=== PATIENT | female | born 1985 | race African-American/Black ===

== ENCOUNTER 2017-04-04 16:11 | Day surgery (SDC) | payer OTHER ==
[2017-04-04 17:03] VITALS: BP 140/70; TEMP 98.4; BMI 41.3
[2017-04-04] MEDS ORDERED: Lactated Ringer's 1,000 ML IV SCH (17:30)
--- NOTE | 2017-04-04 17:59 | PRG ---
DATE OF SERVICE: 04/04/2017 TIME OF EVALUATION: 17:30, it is now 17:42 LOCATION: Labor and Delivery and triage A This is a patient of Dr. Medina. REASON FOR EVALUATION: Constipation and left back pain at 21 weeks and 3 days. HISTORY OF PRESENT ILLNESS: In brief, this is a 31-year-old -[place] female who is a gravid a 2, para 1 with a history of a prior in 2007 who presents with a 3-day history of inabili ty to pass stool and left lower quadrant pain. She denies fevers, vaginal bleeding, contractions, h eadaches, sick contacts, or abdominal trauma. She states that the discomfort began yesterday evenin g and has progressed throughout the day. There is also no evidence of vaginal discharge or bleeding . REVIEW OF SYSTEMS: A complete review of systems was checked and is otherwise negative unless specif ied in the HPI. ALLERGIES: CODEINE. PAST SURGICAL HISTORY: 1. in 2007. 2. She has had a gynecological D\T\C for heavy bleeding. PAST MEDICAL HISTORY: Significant for an umbilical hernia that has not been repaired. She does not have a history of chronic hypertension, although her blood pressure in Labor and Delivery was 140/8 0. This may be due to her discomfort. PHYSICAL EXAMINATION: VITAL SIGNS: Her pulse is 86, respirations are 18, temperature is 98.2, blood pressure is 140/80. Clinically, she looks uncomfortable, but is in no acute distress. It does not appear to be in labor . ABDOMEN: Obese, but soft and nontender. I performed a cervical vaginal exam and find no evidence o f rupture of membranes or vaginal bleeding. Her cervix is closed. There is no vaginal discharge. Doppler heart tones were checked and Doppler heart tones were in the 140s to 150s. Interventions or dered are cath urinalysis, CBC, CMP, IV fluids, and a Fleet enema due to her constipation. ASSESSMENT: This is a G2, P1 at 21 weeks and 3 days with a day history of constipation and lower ba ck pain. I suspect that her discomfort is related to the constipation. She states that constipatio n was severe enough with her last that she required several enemas to clear the problem. There is no evidence of labor at this time. There is no evidence of preeclampsia at this ti me. PLAN: 1. Labs as ordered. 2. Sleep enema to see if this get her relief. 3. IV fluids for symptomatic hydration relief. 4. We will follow up for now.
[2017-04-04 18:02] LABS: #Eosinphils 0.1 thou/uL (0.0-0.7); #Lymphocytes 2.2 thou/uL (1.20-3.40); #Monocytes 0.6 thou/uL (0.11-0.59); #Neutrophils 4.1 thou/uL (1.40-6.50); %Basophils 0.6 % (0.0-1.0); %Eosinophils 1.4 % (0.0-10.0); %Monocytes 7.9 % (0.0-10.0); Hematocrit 39.5 % (36.0-47.0); Red Blood Cell (RBC) Count 4.37 mill/uL (4.20-5.40)
[2017-04-04 18:25] LABS: ALT (SGPT) 11 U/L (8-55); AST (SGOT) 14 U/L (5-34); Alkaline Phosphatase 65 U/L (40-150); Anion Gap 13 mmol/L (10-20); BUN (Urea Nitrogen) 6 mg/dL (7.0-18.7); Bilirubin, Total 0.3 mg/dL (0.2-1.2); Calc. Creatinine Clearance 236 mL/min (70-130); Calcium 9.6 mg/dL (7.8-10.44); Carbon Dioxide 20 mmol/L (22-29); Chloride 106 mmol/L (98-107); Estimated GFR-MDRD Greater than 90; Globulin 4.3 g/dL (2.4-3.5); Protein, Total 7.9 g/dL (6.0-8.3)
[2017-04-04] MEDS ORDERED: Mineral Oil ENEMA PR SCH (18:30)
[2017-04-04 19:03] LABS: Bilirubin Negative (Negative); Blood, Urine Negative (Negative); Glucose, Urine (Dipstick) Negative (Negative); Ketone, Urine 40 mg/dL (Negative); Nitrite Negative (Negative); Protein, Urine (Dipstick) Negative (Neg-Trace)
[2017-04-04] MEDS ORDERED: Mineral Oil ENEMA PR PRN (19:30)
--- NOTE | 2017-04-04 20:47 | PRG ---
DATE OF SERVICE: 04/04/2017 TIME: 2031 hours. FOLLOWUP TRIAGE EVALUATION In brief, this is a patient of Dr. Medina that we have been evaluating for suspected constipation di debbie. The patient's CBC, complete metabolic profile, and urinalysis has returned all normal. S he has had 2 Fleet enemas and has finally had resolved. As there is no evidence of labor, f ebrile illness, or otherwise maternal or compromise, we can follow up her constipation as an o utpatient, now that she has had some relief. She was instructed to take some stool softeners and to follow up with her provider, Dr. Medina, this week.
== END 2017-04-04 20:45 | disposition home or self-care (01) ==
LOC: L&D/OP 16:11
PROVIDERS: ATTEND Obstetrics & Gynecology
DX: O99.89 Other specified diseases and conditions complicating pregnancy, childbirth and the puerperium (principal); K59.00 Constipation, unspecified; M54.9 Dorsalgia, unspecified; O99.612 Diseases of the digestive system complicating pregnancy, second trimester; K42.9 Umbilical hernia without obstruction or gangrene; Z3A.21 21 weeks gestation of pregnancy; Z79.899 Other long term (current) drug therapy; Z88.5 Allergy status to narcotic agent; Z98.890 Other specified postprocedural states
CPT/HCPCS: 80053; 81003; 85025; 96360; 96361

== ENCOUNTER 2017-04-10 18:29 | Emergency (ER) | payer OTHER ==
[2017-04-10] MEDS ORDERED: Acetaminophen 500 MG TAB ONE (18:49)
[2017-04-10] MEDS ORDERED: Oxymetazoline HCl 0.05% ( 15 ML ) ONE (19:17)
[2017-04-10] MEDS ORDERED: Metoclopramide HCl 10 MG/2 ML VIAL ONE (19:34)
[2017-04-10] MEDS ORDERED: diphenhydrAMINE 50 MG/ML VIAL ONE (19:34)
[2017-04-10 19:43] LABS: Bilirubin Negative (Negative); Blood, Urine Negative (Negative); Glucose, Urine (Dipstick) Negative (Negative); Ketone, Urine 15 mg/dL (Negative); Nitrite Negative (Negative); Protein, Urine (Dipstick) Negative (Neg-Trace)
== END 2017-04-10 21:05 | disposition home or self-care (01) ==
LOC: ERS 18:29
DX: O99.512 Diseases of the respiratory system complicating pregnancy, second trimester (principal); J11.1 Influenza due to unidentified influenza virus with other respiratory manifestations; Z3A.22 22 weeks gestation of pregnancy
CPT/HCPCS: 81003; 87081; 87430; 96361; 96365; 96375; J1200; J2765

== ENCOUNTER 2017-05-11 08:22 | Day surgery (SDC) | payer OTHER ==
[2017-05-11 09:25] VITALS: BMI 40.6
[2017-05-11 09:34] VITALS: BP 154/68; TEMP 98.9
--- NOTE | 2017-05-11 10:16 | PDOC.LDHP ---
Labor and Delivery H&P Chief complaint: decreased movement HPI: Arleth is a 31 yo at 26.5w by LMP/reported 6w sono who presents for concern of decreased movement since 4 pm yesterday. She said yesterday she was slightly overexerting herself and had picked up a window AC unit. After that, she did not feel the baby move in the evening but after drinking some cold water around 2 am she felt him move for a bit. She still did not feel like he was moving as much as usual this morning so after dropping her daughter off at school she decided to come in. She denies any LOF, VB, ctx. She denies any vaginal discharge, dysuria, hematuria or any other concerns. She also has not eaten anything since yesterday afternoon. Current gestational age (weeks): 26 (26.5w by LMP/reported 6w sono) Due date: 08/12/17 Dating criteria: last menstrual period, first trimester ultrasound Grav: 2 Para: 1 OB History Details: Denies any complications this or last apart from obesity. Current complications: none Abnormal US findings: No Past Medical History: None Current medications: pre-matilde vitamins Previous surgical history: low tranverse CS, dilation and curettage Social history: other - Physical Exam Vital signs reviewed and normal: yes General: NAD Heart: RRR Lungs: CTAB Abdomen: gravid Extremeties: no edema FHT: category 1 (cannot categorize because not having contractions but baseline is 150/mod arthur/occasional accel/no decel) Searcy contractions every: None - OB Labs Blood type: unknown RH: unknown Antibody Screen: unknown HIV: unknown RPR: unknown HEPSAg: unknown 1 hour GCT: unknown 3 hour GTT: unknown GBS: unknown Urine drug screen: not done - Assessment 31 yo at 26.5w by LMP/reported 6w sono here for concern of decreased movement - Plan -: 1. Decreased movement - movement has picked up and she is now feeling baby move "almost" as much as normal - FHT reassuring - Discussed kick counts and importance of eating regular meals - Feeling much better now that she has had sandwich 2. sIUP - Next appointment is 05/18 for OGTT - Appt with Dr. Medina 06/01/17 - Continue routine follow-up - No noted complications this or last apart from obesity 3. H/o primary C/S for failed induction - Considering TOLAC 4. Obesity - Counseled appropriate weight gain in - OGTT next week Assessment and plan discussed with Dr. Mcgraw who is in agreement. Will discharge home with instructions noted above. <Jen Perdomo - Last Filed: 05/11/17 10:24> <Michelle Mcgraw - Last Filed: 05/11/17 13:39> Allergies/Adverse Reactions: Allergies Allergy/AdvReac Type Severity Reaction Status Date / Time codeine Allergy Verified 05/11/17 11:43 Attending Addendum - Attending Addendum I personally evaluated the patient and discussed the management with Dr. Perdomo. I agree with the History, Examination, Assessment and Plan documented above. <Michelle Mcgraw - Last Filed: 05/11/17 13:39>
== END 2017-05-11 10:25 | disposition home or self-care (01) ==
LOC: L&D/OP 08:22
PROVIDERS: ATTEND Obstetrics & Gynecology
DX: O36.8120 Decreased fetal movements, second trimester, not applicable or unspecified (principal); Z3A.26 26 weeks gestation of pregnancy; Z79.899 Other long term (current) drug therapy; Z88.5 Allergy status to narcotic agent; Z98.890 Other specified postprocedural states

== ENCOUNTER 2017-05-22 07:31 | Inpatient (IN) | payer OTHER ==
[2017-08-02] MEDS ORDERED: Promethazine HCl 25 MG/ML VIAL IM PRN ×4 (10:06→19:50)
[2017-08-02] MEDS ORDERED: Lactated Ringer's 1,000 ML IV SCH ×3 (10:06→14:49)
[2017-08-02] MEDS ORDERED: Bicitra 30 ML UDCUP PO SCH (10:06)
[2017-08-02] MEDS ORDERED: CEFAZOLIN/Water 2 GM/20 ML SYRINGE SLOW IVP SCH (10:06)
[2017-08-02] MEDS ORDERED: Ondansetron HCl/PF 4 MG/2 ML Vial IVP PRN ×5 (10:06→19:50)
[2017-08-02 10:27] VITALS: BMI 42.7
[2017-08-02 10:59] LABS: Hemoglobin 11.9 g/dL (12.0-16.0); Mean Corpuscular HGB CONC 33.1 g/dL (32.0-36.0); Mean Corpuscular Hemoglobin 29.3 pg (27.0-31.0); Mean Corpuscular Volume 88.6 fl (81.0-99.0); Mean Platelet Volume 7.3 fL (7.4-10.4); Platelet Count 240 thou/uL (130-400); RBC Distribution Width 13.3 % (11.5-14.5); Red Blood Cell (RBC) Count 4.06 mill/uL (4.20-5.40); White Blood Cell (WBC) Count 8.8 thou/uL (4.8-10.8)
[2017-08-02 11:39] LABS: HBSAg Index 0.15 S/CO (0-0.99); Hep B Surf Ag Non-Reactive S/CO (NonReactive)
[2017-08-02 11:41] LABS: Syphilis Antibody Nonreactive (Nonreactive); Syphilis Antibody Index 0.06 S/CO (<1.00 Non-Reactive)
[2017-08-02] MEDS ORDERED: Fentanyl 100 MCG/2 ML VIAL ONE (12:27)
[2017-08-02] MEDS ORDERED: Oxytocin 10 UNITS/ML VIAL ONE (12:27)
[2017-08-02] MEDS ORDERED: Morphine PF 1 MG/ML SYR ONE (12:27)
[2017-08-02] MEDS ORDERED: Meperidine HCl/PF 25 MG/ML VIAL SLOW IVP PRN (13:15)
[2017-08-02] MEDS ORDERED: Ketorolac Tromethamine 30 MG/ML VIAL IVP SCH (13:15)
[2017-08-02] MEDS ORDERED: HYDROmorphone 2 MG/ML VIAL SLOW IVP PRN (13:15)
[2017-08-02] MEDS ORDERED: Promethazine HCl 25 MG SUPP PR PRN ×2 (13:15→19:50)
[2017-08-02] MEDS ORDERED: Naloxone HCl 0.4 mg/ml Vial IVP PRN ×4 (13:15→19:50)
[2017-08-02] MEDS ORDERED: Communication Order-Pharmacy FS SCH ×2 (13:15→20:00)
[2017-08-02] MEDS ORDERED: diphenhydrAMINE 50 MG/ML VIAL IVP PRN ×2 (13:15→19:50)
[2017-08-02] MEDS ORDERED: Naloxone HCl 0.4 mg/ml Vial IV PRN ×2 (13:15→19:50)
[2017-08-02] MEDS ORDERED: Eucerin (Mineral Oil/Petrolatum,White) 30 gm Jar TOP PRN ×2 (13:15→19:50)
[2017-08-02] MEDS ORDERED: Ketorolac Tromethamine 30 MG/ML VIAL IVP PRN ×2 (13:15→19:50)
[2017-08-02] MEDS ORDERED: Adacel (T-DAP) 0.5 ML VIAL IM ONE (14:49)
[2017-08-02] MEDS ORDERED: HYDROcodone/Acetaminophen 5/325 mg Tablet PO PRN (14:49)
[2017-08-02] MEDS ORDERED: Zolpidem Tartrate 5 MG TAB PO PRN (14:49)
[2017-08-02] MEDS ORDERED: LR w/ Pitocin 40 units/1000 ML BAG IV SCH (14:49)
[2017-08-02] MEDS ORDERED: Measles/Mumps/Rubella 10 MCG/0.5 ML VIAL SC ONE (14:49)
[2017-08-02] MEDS ORDERED: Lanolin Ointment 7 GM TUBE TOP PRN (14:49)
[2017-08-02] MEDS ORDERED: Varicella virus, LIVE 0.5 ML VIAL SC ONE (14:49)
[2017-08-02] MEDS ORDERED: LR / Pitocin 40 units/1000 ml 1,000 ML IV SCH (15:15)
[2017-08-02] MEDS: Morphine 5 MG/ML SYRINGE SLOW IVP PRN ×3 (16:12→17:40)
[2017-08-02] MEDS: Ibuprofen 800 MG TAB PO SCH ×2 (16:16→22:46)
[2017-08-02] MEDS ORDERED: Ondansetron HCl/PF 4 MG/2 ML Vial ONE (17:16)
[2017-08-02] MEDS ORDERED: PHENYLEPHRINE-NS 100 MCG/ML 10 ML SYRINGE ONE (17:16)
[2017-08-02] MEDS ORDERED: Ketorolac Tromethamine 30 MG/ML VIAL ONE (17:16)
--- NOTE | 2017-08-02 20:06 | OP ---
DATE OF PROCEDURE: 08/02/2017 PREOPERATIVE DIAGNOSES: 1. A 38 weeks gestation. 2. Prior section x1. 3. Unfavorable cervix. POSTOPERATIVE DIAGNOSES: 1. A 38 weeks gestation. 2. Prior section x1. 3. Unfavorable cervix. PROCEDURE PERFORMED: Repeat low transverse section without extension. SURGEON: Kain Medina M.D. SPECIAL EDUCATION TUTOR: Laurie Devi D.O. ANESTHESIA: Bruce Savage M.D., subarachnoid block. ESTIMATED BLOOD LOSS: 750 mL. COMPLICATIONS: None. DRAINS: Castellano to gravity. MEDICATIONS: Three grams Ancef preincision. DEEP VENOUS THROMBOSIS PROPHYLAXIS: SCDs. OPERATIVE FINDINGS: 1. Male infant, cephalic presentation and clear fluid, 4 and 9 Apgars, 8 pounds 2 ounces, nu rsery. 2. Normal appearing uterus, tubes, and ovaries bilaterally. 3. Intact placenta with no obvious abnormalities. 4. Clear urine and correct counts at the end of the procedure. DISPOSITION: To the recovery room in good condition. DESCRIPTION OF OPERATIVE PROCEDURE: After obtaining proper informed consent, the patient was taken t o the operating room where subarachnoid block was achieved without difficulty. The patient was prepp ed and draped in the usual manner for section. FHTs were 142, previous Pfannenstiel incisio n identified, incised sharply, carried down the fascia and the midline was incised sharply superiorly and laterally with curved Li scissors. Rectus dissected off sharply superiorly and inferiorly, di vided in midline, peritoneum entered bluntly, taking care to avoid trauma to underlying viscera. Elly xis O retractor placed inside. Low-transverse hysterotomy made just above the level of the vesicoute rine peritoneal fold. Clear fluid encountered. 's head elevated through the hysterotomy. The rest of the infant delivered. Cord clamped and cut and handed off to team in attendance. Usual cord blood samples obtained. Placenta removed manually and noted to be intact. Uterus left in side the abdominal cavity. Hysterotomy noted to be without extension, closed using a running locking #1 Monocryl suture. Gutters were irrigated out bilaterally and noted to be dry. Reinspection of th e hysterotomy revealed it to be dry. Lane 0 retractor was removed. The rectus inspected and noted to be dry. Fascia reapproximated using running continuous 0 PDS suture x2. Subcutaneous tissue irr igated and hemostatic with Bovie cautery, reapproximated using a 2-0 plain gut. Skin reapproximated using subcuticular 4-0 Monocryl and Dermabond. The patient was taken to recovery room in good condit ion.
[2017-08-02] MEDS: Docusate Calcium (SURFAK) 240 MG CAP PO SCH (22:46)
[2017-08-02] MEDS: diphenhydrAMINE 25 MG CAP PO PRN (23:53)
[2017-08-03] MEDS ORDERED: Meperidine HCl/PF 25 MG/ML VIAL IM PRN (01:15)
[2017-08-03] MEDS ORDERED: HYDROcodone/Acetaminophen 5/325 mg Tablet PO PRN ×3 (01:15→08:00)
[2017-08-03 05:27] LABS: Hemoglobin 10.4 g/dL (12.0-16.0); Mean Corpuscular HGB CONC 32.5 g/dL (32.0-36.0); Mean Corpuscular Hemoglobin 28.9 pg (27.0-31.0); Mean Corpuscular Volume 88.9 fl (81.0-99.0); Mean Platelet Volume 7.4 fL (7.4-10.4); Platelet Count 190 thou/uL (130-400); RBC Distribution Width 13.3 % (11.5-14.5); White Blood Cell (WBC) Count 8.8 thou/uL (4.8-10.8)
[2017-08-03] MEDS: Ibuprofen 800 MG TAB PO SCH ×3 (06:21→21:18)
[2017-08-03] MEDS: Docusate Calcium (SURFAK) 240 MG CAP PO SCH ×2 (09:05→21:18)
[2017-08-03] MEDS: Prenatal Vitamin 1 TAB PO SCH (09:05)
[2017-08-03] MEDS: HYDROcodone/Acetaminophen 5/325 mg Tablet PO PRN ×2 (09:06→17:07)
[2017-08-03] MEDS: diphenhydrAMINE 25 MG CAP PO PRN (12:23)
[2017-08-03] MEDS: Simethicone Chewable 80 MG TAB PO PRN ×2 (13:56→21:19)
[2017-08-04] MEDS: HYDROcodone/Acetaminophen 5/325 mg Tablet PO PRN ×3 (04:21→19:28)
[2017-08-04] MEDS: Simethicone Chewable 80 MG TAB PO PRN ×2 (04:21→19:28)
[2017-08-04] MEDS: Ibuprofen 800 MG TAB PO SCH ×3 (05:45→21:21)
[2017-08-04] MEDS: Prenatal Vitamin 1 TAB PO SCH (09:29)
[2017-08-04] MEDS: Docusate Calcium (SURFAK) 240 MG CAP PO SCH ×2 (09:29→21:22)
[2017-08-04 20:26] VITALS: TEMP 98.3
[2017-08-05] MEDS: Ibuprofen 800 MG TAB PO SCH (05:29)
--- NOTE | 2017-08-05 06:32 | PDOC.PP ---
Post Progress Note Post Day #: 3 Subjective: Doing well PO intake tolerated: yes Flatus: yes Ambulation: yes Vital Signs (12 hours) Temp Pulse Resp BP 08/05/17 00:04 77 127/62 08/04/17 19:28 98.3 F 86 20 141/72 H Weight Weight 298 lb - Physical Examination General: NAD Cardiovascular: no m/r/g Respiratory: clear to auscultation bilaterally Abdominal: appropriately TTP (sutured incision) Extremities: negative homans (B) Skin: CS incision dry & intact Neurological: no gross focal deficits Result Diagrams: 08/03/17 04:59 Additional Labs: Post Labs Blood Type O POSITIVE 08/02/17 10:49 Hep Bs Antigen Non-Reactive S/CO (NonReactive) 08/02/17 10:49 (1) Delivery with history of section Code(s): O34.219 - MATERNAL CARE FOR UNSP TYPE SCAR FROM PREVIOUS DEL Status: Acute (2) Hx of section Code(s): Z98.891 - HISTORY OF UTERINE SCAR FROM PREVIOUS SURGERY Status: Acute - Assessment/Plan OK for discharge. patient seen and examined. No evidence postop infection or ilius. Tylenol #[address] Medina. F/U in 2 weeks.
--- NOTE | 2017-08-05 06:33 | PDOC.EVN ---
Event Note - Event Note Event Note: DISCHARGE NOTE PROCEDURE: Repeat at term Patient s/p repeat CS with discharge home on POD3. Doing well at discharge. VSSFEB. Incision sutured. Please see note and discharge summary in record.
[2017-08-05 08:40] VITALS: BP 139/78
[2017-08-05] MEDS: Prenatal Vitamin 1 TAB PO SCH (10:04)
[2017-08-05] MEDS: Docusate Calcium (SURFAK) 240 MG CAP PO SCH (10:04)
== END 2017-08-05 11:30 | disposition home or self-care (01) | DRG 765 ==
LOC: EDSTATUS 11:05 → L&D 08-02 09:48 → 3SW 08-02 16:11
PROVIDERS: ADMIT Obstetrics & Gynecology; ATTEND Obstetrics & Gynecology
PROC: 10D00Z1 Extraction of Products of Conception, Low, Open Approach (ICD-10-PCS; principal; 2017-08-02)
DX: O34.211 Maternal care for low transverse scar from previous cesarean delivery (principal); Z68.41 Body mass index [BMI] 40.0-44.9, adult; E66.01 Morbid (severe) obesity due to excess calories; O13.4 Gestational [pregnancy-induced] hypertension without significant proteinuria, complicating childbirth; O99.214 Obesity complicating childbirth; Z3A.38 38 weeks gestation of pregnancy; Z37.0 Single live birth
CPT/HCPCS: 36415; 51702; 85027; 86780; 86850; 86900; 86901; 87340; J2270; J0131; J1200; J1885; J2274; J2405; J2550; J2590; J3010

== ENCOUNTER 2017-07-18 12:58 | Day surgery (SDC) | payer OTHER ==
--- NOTE | 2017-07-18 15:01 | HP ---
DATE OF SERVICE: 07/18/2017 PRIMARY LOG PREPARER: Dr. Kain Medina. CHIEF COMPLAINT: Abdominal pains. HISTORY OF PRESENT ILLNESS: The patient is a 31-year-old G2, P1 female with an intrauterine pregnanc y at 36 weeks who is presenting to Labor and Delivery with lower abdominal pain and pelvic pressure. She reports that she has been feeling this for the last day, more so, but has been getting progressi ve with this and is "tired of being ". The patient reports that the abdominal pain is present with the contractions, which she feels about every 15-20 minutes and last about 10-15 sec onds. She denies any pain in between the contractions. She also reports some pelvic pressure like t he baby wants to come out. The patient denies any vaginal bleeding, leakage of fluid, change in disc harge. She denies any urinary urgency or frequency. She denies any fever, fall, illness, headache, chest pain, shortness of breath, nausea, vomiting. She denies diarrhea, constipation. She denies an y new rashes. She denies hip problems or knee problems. Denies vaginal bleeding, leakage of fluid, urinary urgency. PAST MEDICAL HISTORY: Significant for abdominal ventral hernia. PAST SURGICAL HISTORY: Previous . SOCIAL HISTORY: Denies drug, alcohol or tobacco use. ALLERGIES: No known drug allergy. MEDICATIONS: vitamins. REVIEW OF SYSTEMS: Per HPI. OB LABORATORY DATA: Blood type is O positive, antibody screen is negative. She is rubella immune. Hepatitis B surface antigen is nonreactive. RPR is nonreactive. HIV is nonreactive, GC and chlamydi a are negative. PHYSICAL EXAMINATION: VITAL SIGNS: Blood pressure 141/63, heart rate of 96, respiratory rate of 20, temperature 98.9. GENERAL: She appears to be in no acute distress. She is alert and oriented, and cooperative and ple asant to interact with. HEAD: Normocephalic, atraumatic. LUNGS: Clear to auscultation bilaterally. HEART: Has a regular rate and rhythm. ABDOMEN: Soft. She does have a ventral hernia about 6 inches above her umbilicus. EXTREMITIES: Nontender, nonedematous. CERVICAL EXAM: Closed. At the time of the cervical exam, nurse reported that the patient seems to h ave a Bartholin's gland cyst, not painful to the patient. heart tracing performed for abdominal pain threatened labor. Baseline is in the 130s with mode rate long-term variability, positive accelerations, no decelerations. Baseline does not show any con tractions. ASSESSMENT AND PLAN: The patient is a 31-year-old female with an intrauterine at 36 weeks, having contractions and a closed cervix. She has an appointment tomorrow with her doctor, Renae Medina and recommended that she have him evaluate her this Bartholin's gland cyst. We deferred th is evaluation to him due to the proximity of this visit and the patient's lack of symptoms from it. I did counseled the patient that she does have increased chance of infection with this cyst and did r ecommended once again for her to let Dr. Medina know about it. The patient has been given la bor precautions.
== END 2017-07-18 14:00 | disposition home or self-care (01) ==
LOC: L&D/OP 12:58
PROVIDERS: ATTEND Obstetrics & Gynecology
DX: O47.03 False labor before 37 completed weeks of gestation, third trimester (principal); O34.83 Maternal care for other abnormalities of pelvic organs, third trimester; N75.0 Cyst of Bartholin's gland; Z88.5 Allergy status to narcotic agent; Z79.899 Other long term (current) drug therapy; Z3A.36 36 weeks gestation of pregnancy; Z98.891 History of uterine scar from previous surgery
CPT/HCPCS: 99282

== ENCOUNTER 2017-08-17 15:05 | Emergency (ER) | payer OTHER ==
[2017-08-17] MEDS ORDERED: Ibuprofen 800 MG TAB ONE (16:23)
--- NOTE | 2017-08-17 16:38 | RAD ---
RIGHT HIP 2 VIWES: HISTORY: Hip pain. FINDINGS: There are arthritic changes of the hip. There is joint space narrowing and some spur formation along the femoral head and neck junction and acetabulum. No fracture. IMPRESSION: Moderate arthritic changes of the hip. POS: [facility]
== END 2017-08-17 16:27 | disposition home or self-care (01) ==
LOC: ERS 15:05
DX: O99.89 Other specified diseases and conditions complicating pregnancy, childbirth and the puerperium (principal); M25.551 Pain in right hip

== ENCOUNTER 2017-10-03 21:03 | Emergency (ER) | payer OTHER ==
[~2017-10-03 21:03] MED LIST: ISOVUE-370 76%-LOCM 1 ML ONE
[2017-10-03] MEDS ORDERED: Ketorolac Tromethamine 30 MG/ML VIAL ONE (22:17)
[2017-10-03 22:22] LABS: #Eosinphils 0.1 thou/uL (0.0-0.7); #Lymphocytes 2.1 thou/uL (1.20-3.40); #Monocytes 0.7 thou/uL (0.11-0.59); #Neutrophils 4.2 thou/uL (1.40-6.50); %Basophils 0.1 % (0.0-1.0); %Eosinophils 1.3 % (0.0-10.0); %Lymphocytes 29.6 % (21.0-51.0); %Monocytes 9.5 % (0.0-10.0); %Neutrophils 59.4 % (42.0-75.0); Hemoglobin 11.4 g/dL (12.0-16.0); Mean Corpuscular HGB CONC 32.4 g/dL (32.0-36.0); Mean Corpuscular Hemoglobin 28.3 pg (27.0-31.0); Mean Corpuscular Volume 87.3 fl (81.0-99.0); Mean Platelet Volume 6.8 fL (7.4-10.4); Platelet Count 261 thou/uL (130-400); RBC Distribution Width 13.9 % (11.5-14.5); Red Blood Cell (RBC) Count 4.03 mill/uL (4.20-5.40); White Blood Cell (WBC) Count 7.1 thou/uL (4.8-10.8)
--- NOTE | 2017-10-03 22:36 | CT ---
POSTCONTRAST SOFT TISSUE NECK CT: 10/03/17 HISTORY: Left lower jaw pain and swelling x2 weeks. Pain worsening today. COMPARISON: None. TECHNIQUE: Postcontrast soft tissue neck CT is performed in the axial plane. Reformatted images are submitted fo r interpretation. FINDINGS: The visualized brain parenchyma is unremarkable. the visualized orbits are unremarkable. Adequate aer ation of the visualized sinuses and mastoid air cells. Aerodigestive tract is patent. No mucosal abnormality. The midline fatty raphae of the tongue is pres erved. Epiglottis has a normal caliber. Pre-epiglottic fat is preserved. Appropriate attenuation of the submandibular glands and parotid gland. Appropriate attenuation of the thyroid gland. Symmetric attenuation of the sternocleidomastoid muscles. Grossly, the great vessels of the neck are patent. Cervical spine vertebral body height is maintained. No fracture. No significant central canal stenosi s or foraminal narrowing. Evaluation is limited by technique. No prevertebral soft tissue swelling or epidural hematoma. Upper mediastinum and lung apices are unremarkable. There are enlarged bilateral soft tissue neck lymph nodes. Enlarged right level II lymph nodes measur es 0.6 x 1.2 cm Enlarged left level II lymph node measures 1.3 x 1.6 cm. Enlarged left level I lymph node measures 2.1 x 1.2 cm. There is induration of the subcutaneous fat overlying the midline and left aspect of the mandible ext ending inferiorly just underneath the mandible. Drainable abscess/fluid collection is not appreciated . There is also stranding of the gingiva and soft tissues overlying the left mandible. There is erosi ve change involving the lateral aspect of the left mandible, at approximately the first mandibular mo lar tooth apex. There is evidence of periodontal disease. Small focus of air attenuation is noted in the adjacent soft tissues/gingiva. Again, a drainable abscess is not appreciated. Induration may repr esent phlegmonous change. Small microabscess cannot be completely excluded. In addition to the periapical abscess, there is a dental imani involving the aforementioned first lef t mandibular molar tooth. IMPRESSION: Periodontal disease/periapical abscess involving the first left mandibular molar tooth. Inflammatory changes in the adjacent gingiva and soft tissues are identified. A small focus of air is present. Ph legmonous change is favored. A drainable abscess is not appreciated. There are reactive changes in th e overlying soft tissues as well as reactive lymphadenopathy. POS: [facility]
[2017-10-03 22:43] LABS: ALT (SGPT) 7 U/L (8-55); AST (SGOT) 10 U/L (5-34); Albumin 3.9 g/dL (3.5-5.0); Alkaline Phosphatase 86 U/L (40-150); Anion Gap 10 mmol/L (10-20); BUN (Urea Nitrogen) 8 mg/dL (7.0-18.7); Bilirubin, Total 0.2 mg/dL (0.2-1.2); Calc. Creatinine Clearance 0 mL/min (70-130); Calcium 9.1 mg/dL (7.8-10.44); Carbon Dioxide 29 mmol/L (22-29); Chloride 106 mmol/L (98-107); Estimated GFR-MDRD Greater than 90; Globulin 3.4 g/dL (2.4-3.5); Glucose 88 mg/dL (70-105); Potassium 3.7 mmol/L (3.5-5.1); Protein, Total 7.3 g/dL (6.0-8.3); Sodium 141 mmol/L (136-145)
[2017-10-03] MEDS ORDERED: Clindamycin/D5W 600 mg/50 ml Premix Bag ONE (22:55)
== END 2017-10-03 23:52 | disposition home or self-care (01) ==
LOC: ERS 21:03
DX: K04.7 Periapical abscess without sinus (principal); K02.9 Dental caries, unspecified; K05.6 Periodontal disease, unspecified
CPT/HCPCS: 70491; 80053; 83605; 85025; 96365; 96375; J1885; J3490

== ENCOUNTER 2018-01-31 15:53 | Emergency (ER) | payer OTHER ==
[2018-01-31 17:52] LABS: Hemoglobin 13.1 g/dL (12.0-16.0); Mean Corpuscular HGB CONC 31.6 g/dL (32.0-36.0); Mean Corpuscular Hemoglobin 28.1 pg (27.0-31.0); Mean Corpuscular Volume 88.9 fL (78.0-98.0); Mean Platelet Volume 7.6 fL (7.4-10.4); RBC Distribution Width 14.3 % (11.5-14.5); Red Blood Cell (RBC) Count 4.68 mill/uL (4.20-5.40); White Blood Cell (WBC) Count 6.3 thou/uL (4.8-10.8)
[2018-01-31 18:04] LABS: Platelet Clumps SLIGHT; Polychromasia SLIGHT = 2-3 cells (100X) (0-2/hpf)
[2018-01-31 18:06] LABS: Platelet Count 198 thou/uL (130-400)
[2018-01-31 18:08] LABS: Eosinophils 3 % (0-10); Lymphocytes 33 % (21-51); Manual Diff?? YES; Monocytes 8 % (0-10); Reactive Lymphocytes 4 % (0-10)
[2018-01-31 18:09] LABS: MDiff Complete? YES; PLT Morphology Comment PLT clumps seen-ADEQ
[2018-01-31 18:21] LABS: ALT (SGPT) 14 U/L (8-55); AST (SGOT) 16 U/L (5-34); Albumin 4.1 g/dL (3.5-5.0); Alkaline Phosphatase 77 U/L (40-150); Anion Gap 15 mmol/L (10-20); BUN (Urea Nitrogen) 7 mg/dL (7.0-18.7); Bilirubin, Total 0.2 mg/dL (0.2-1.2); CK (CPK) 367 U/L (29-168); Calc. Creatinine Clearance 0 mL/min (70-130); Carbon Dioxide 19 mmol/L (22-29); Chloride 110 mmol/L (98-107); Estimated GFR-MDRD Greater than 90; Globulin 3.3 g/dL (2.4-3.5); Glucose 89 mg/dL (70-105); Lipase 46 U/L (8-78); Potassium 4.3 mmol/L (3.5-5.1); Protein, Total 7.4 g/dL (6.0-8.3); Sodium 140 mmol/L (136-145)
[2018-01-31 18:23] LABS: CKMB 2.7 ng/mL (0-6.6); Troponin I Less than 0.010 ng/mL (< 0.028)
--- NOTE | 2018-01-31 18:28 | ULT ---
BILATERAL LOWER EXTREMITY VENOUS DOPPLER: 01/31/18 HISTORY: Lower extremity swelling. COMPARISON: None. TECHNIQUE: Real time olea scale, color doppler and spectral analysis of the bilateral lower extremity venous sys tem is performed. The common femoral, femoral, proximal portions of the greater saphenous and deep fe moral veins as well as the popliteal and posterior tibial veins were interrogated. Normal flow, augmentation and compression. IMPRESSION: No deep venous thrombosis. POS: [facility]
[2018-01-31] MEDS ORDERED: Metoclopramide HCl 10 MG/2 ML VIAL ONE (18:33)
[2018-01-31] MEDS ORDERED: hydrALAZINE 20 MG/ML VIAL ONE (18:33)
[2018-01-31] MEDS ORDERED: diphenhydrAMINE 50 MG/ML VIAL ONE (18:33)
--- NOTE | 2018-01-31 19:44 | RAD ---
CHEST ONE VIEW: HISTORY: Swelling. Dyspnea. Dizziness. COMPARISON: 01/22/2012 FINDINGS: Normal cardiac silhouette. Lungs and pleural spaces are clear. No pneumothorax or osseous abnormali ties. IMPRESSION: No acute cardiopulmonary process. POS: [facility]
--- NOTE | 2018-01-31 20:17 | CT ---
CT BRAIN WITHOUT CONTRAST 01/31/18 HISTORY: Headache. COMPARISON: CT brain from 2012. FINDINGS: No acute territorial infarct or hemorrhage. No midline shift or mass effect. Ventricular size and ext ra-axial CSF spaces are normal. The calvarium is intact. The paranasal sinuses and mastoids are clear. IMPRESSION: No acute intracranial abnormalities. POS: [facility]
--- NOTE | 2018-02-02 10:53 | EKG ---
Test Reason : Blood Pressure : / mmHG Vent. Rate : 073 BPM Atrial Rate : 073 BPM P-R Int : 190 ms QRS Dur : 100 ms QT Int : 396 ms P-R-T Axes : 053 026 002 degrees QTc Int : 436 ms Normal sinus rhythm Incomplete right bundle branch block Nonspecific T wave abnormality Abnormal ECG Confirmed by PANFILO KIM, HALIE ([id number]), food expeditor DELMY MCGUIRE ([id number]) on 02/02/2018 10:53:09 AM Referred By: Confirmed By:HALIE WHITTAKER MD
== END 2018-01-31 19:13 | disposition home or self-care (01) ==
LOC: ERS 15:53
DX: I10 Essential (primary) hypertension (principal); R51 Headache; M79.89 Other specified soft tissue disorders
CPT/HCPCS: 36415; 70450; 71045; 80053; 82550; 82553; 83690; 83880; 84484; 85025; 93005; 93970; 96365; 96375; J0360; J1200; J2765

== ENCOUNTER 2018-11-27 13:36 | Outpatient (CLI) | payer MEDICAID ==
--- NOTE | 2018-11-27 08:56 | ULT ---
ULTRASOUND PELVIC ULTRASOUND TRANSVAGINAL DOPPLER DUPLEX: 11/27/2018 HISTORY: A 32-year-old female with pelvic pain. TECHNIQUE: Transabdominal transducer used to evaluate intrapelvic contents using the urinary bladder as an acous tic window. Endovaginal transducer used to visualize intrapelvic contents in greater detail. Color fl ow Doppler and Pulsed Doppler spectral waveform analysis of ovaries. FINDINGS: Uterus: 10.5 x 5.5 x 5 cm. Endometrial stripe: 1 cm (10 mm). Right ovary: 4 x 3 x 2.4 cm. Left ovary: 3 x 3 x 2 cm. Uterine leiomyoma (fibroid): None. Blood flow in both ovaries: Demonstrate. Ovarian cyst (defined as 2 cm or greater): A 2.5 x 2 x 2 cm right ovarian cyst. Free fluid in the cul-de-sac: Tiny amount. IMPRESSION: 1. A 2.5 cm right ovarian cyst. 2. Otherwise negative. MARCELA Robertson POS: [facility]
== END 2018-11-27 13:37 | disposition home or self-care (01) ==
LOC: BICULT 13:36
PROVIDERS: ATTEND Advanced Practice Midwife
DX: R10.2 Pelvic and perineal pain (principal); N83.201 Unspecified ovarian cyst, right side
CPT/HCPCS: 76856

== ENCOUNTER 2019-01-06 13:48 | Emergency (ER) | payer MEDICAID | END 2019-01-06 14:42 | disposition home or self-care (01) | LOC: ERS 13:48 | DX: N61.1 Abscess of the breast and nipple (principal) | CPT/HCPCS: 10060 ==

== ENCOUNTER 2019-03-11 17:08 | Emergency (ER) | payer SELFPAY | END 2019-03-11 17:45 | disposition left against medical advice (07) | LOC: ERS 17:08 | DX: Z53.21 Procedure and treatment not carried out due to patient leaving prior to being seen by health care provider (principal) ==

== ENCOUNTER 2019-03-12 09:08 | Emergency (ER) | payer SELFPAY | END 2019-03-12 11:29 | disposition left against medical advice (07) | LOC: ERS 09:08 | DX: Z53.21 Procedure and treatment not carried out due to patient leaving prior to being seen by health care provider (principal) ==

== ENCOUNTER 2020-01-12 08:07 | Outpatient (CLI) | payer BC, OTHER ==
[2020-01-12 16:21] LABS: #Eosinphils 0.2 thou/uL (0.0-0.7); #Lymphocytes 3.7 thou/uL (1.20-3.40); #Monocytes 0.5 thou/uL (0.11-0.59); #Neutrophils 3.3 thou/uL (1.40-6.50); %Basophils 0.6 % (0.0-1.0); %Eosinophils 2.6 % (0.0-10.0); %Lymphocytes 47.5 % (21.0-51.0); %Monocytes 6.6 % (0.0-10.0); %Neutrophils 42.8 % (42.0-75.0); Hemoglobin 13.3 g/dL (12.0-16.0); Mean Corpuscular HGB CONC 32.1 g/dL (32.0-36.0); Mean Corpuscular Hemoglobin 29.3 pg (27.0-31.0); Mean Corpuscular Volume 91.2 fL (78.0-98.0); Mean Platelet Volume 7.9 fL (7.4-10.4); Platelet Count 301 thou/uL (130-400); RBC Distribution Width 13.4 % (11.5-14.5); Red Blood Cell (RBC) Count 4.55 mill/uL (4.20-5.40); White Blood Cell (WBC) Count 7.7 thou/uL (4.8-10.8)
[2020-01-12 16:32] LABS: BHCG - Serum Negative (NEGATIVE); Pregs Control Background? CLEAR/WHITE (CLR/WHITE); Pregs Control Bar Appear? YES (CONTROL BAR)
[2020-01-12 16:48] LABS: Anion Gap 12 mmol/L (10-20); BUN (Urea Nitrogen) 8 mg/dL (7.0-18.7); Calc. Creatinine Clearance 0 mL/min (70-130); Calcium 9.2 mg/dL (7.8-10.44); Carbon Dioxide 24 mmol/L (22-29); Chloride 108 mmol/L (98-107); Estimated GFR-MDRD 85; Glucose 87 mg/dL (70-105); Potassium 4.5 mmol/L (3.5-5.1); Sodium 139 mmol/L (136-145)
[2020-01-13 14:15] LABS: SARS-CoV-2 MS2 Positive; SARS-CoV-2 N Gene Negative; SARS-CoV-2 S Gene Negative; SARS-CoV-2 by NAA Not Detected (NotDetected); SARS-CoV-2 orf1ab Negative
== END 2020-01-12 08:08 | disposition home or self-care (01) ==
LOC: LABBT 08:07
PROVIDERS: ATTEND Surgery
DX: Z01.812 Encounter for preprocedural laboratory examination (principal); Z11.59 Encounter for screening for other viral diseases; K43.9 Ventral hernia without obstruction or gangrene
CPT/HCPCS: 80048; 84703; 85025; 87635; U0003

== ENCOUNTER 2020-04-02 19:17 | Emergency (ER) | payer BC ==
[2020-04-02] MEDS ORDERED: Ibuprofen 800 MG TAB ONE (20:13)
[2020-04-02] MEDS ORDERED: cloNIDine 0.1 MG TAB ONE (20:13)
[2020-04-02] MEDS ORDERED: Metoclopramide HCl 10 MG TAB ONE (20:15)
== END 2020-04-02 22:41 | disposition home or self-care (01) ==
LOC: ERS 19:17
DX: R51.9 Headache, unspecified (principal); I10 Essential (primary) hypertension
CPT/HCPCS: 99283

== ENCOUNTER 2020-04-19 14:11 | Outpatient (CLI) | payer BC, MEDICAID ==
--- NOTE | 2020-04-19 15:39 | ULT ---
RIGHT BREAST ULTRASOUND: Date: 04/19/2020 HISTORY: Patient has two palpable findings in the right breast, one approximately the 5 o'clock position and o ne at approximately 4 o'clock position. FINDINGS: Real-time imaging of the area of concern shows a small skin lesion at the 5 o'clock position 1.0 cm f rom the nipple. Patient states that she has had previous small abscesses. This appears to represent s car. It is not related to the breast tissue itself. The other area of concern shows no finding. IMPRESSION: BI-RADS Category 2 - Benign findings. POS: [facility]
--- NOTE | 2020-04-19 15:45 | MMO ---
Bilateral MAMMO Bilat Diag [facility]DI+NIHARIKA. CLINICAL HISTORY: Patient is 34 years old and is seen for diagnostic exam and lump or thickening in the right breast. The patient has no family history of breast cancer. The patient has no personal history of cancer. VIEWS: The views performed were: bilateral craniocaudal with tomosynthesis; bilateral mediolateral oblique with tomosynthesis; and bilateral mediolateral with tomosynthesis. FILMS COMPARED: The present examination has been compared to a prior imaging study performed at [facility] on 04/19/2020. This study has been interpreted with the assistance of computer-aided detection. MAMMOGRAM FINDINGS: There are scattered fibroglandular densities. Palpable areas showed no mammographic findings and US negative. There are no suspicious masses, suspicious calcifications, or new areas of architectural distortion. IMPRESSION: THERE IS NO MAMMOGRAPHIC EVIDENCE OF MALIGNANCY. A ROUTINE FOLLOW-UP MAMMOGRAM AT AGE 38 IS RECOMMENDED. THE RESULTS OF THIS EXAM WERE SENT TO THE PATIENT. ACR BI-RADS Category 2 - Benign finding MAMMOGRAPHY NOTE: 1. A negative mammogram report should not delay a biopsy if a dominant of clinically suspicious mass is present. 2. Approximately 10% to 15% of breast cancers are not detected by mammography. 3. Adenosis and dense breasts may obscure an underlying neoplasm. Reported by: CALE SILVA MD Electonically Signed: [id number]
== END 2020-04-19 14:12 | disposition home or self-care (01) ==
LOC: BICMAMMO 14:11
PROVIDERS: ATTEND Obstetrics & Gynecology
DX: N63.10 Unspecified lump in the right breast, unspecified quadrant (principal)
CPT/HCPCS: 77066; G0279

== ENCOUNTER 2020-07-09 15:11 | Outpatient (CLI) | payer BC ==
[~2020-07-09 15:11] MED LIST changes: -ISOVUE-370 76%-LOCM 1 ML ONE; +Iopamidol 370 76% 100 ML VIAL ONE
== END 2020-07-09 15:12 | disposition home or self-care (01) ==
LOC: BICCT 15:11
PROVIDERS: ATTEND Specialist
DX: K42.9 Umbilical hernia without obstruction or gangrene (principal); Z98.890 Other specified postprocedural states
CPT/HCPCS: 74160; Q9967

== ENCOUNTER 2020-08-05 13:05 | Outpatient (CLI) | payer BC ==
[2020-08-05 14:46] LABS: #Eosinphils 0.3 10x3/uL (0.0-0.5); #Monocytes 0.6 10x3/uL (0.0-1.1); #Neutrophils 3.6 10x3/uL (1.5-8.4); %Basophils 0.4 % (0.0-2.0); %Eosinophils 4.4 % (0.0-6.0); %Lymphocytes 40.9 % (18.0-47.0); %Monocytes 7.3 % (0.0-10.0); %Neutrophils 46.9 % (40.0-75.0); Hemoglobin 12.6 g/dL (12.0-15.5); Mean Corpuscular HGB CONC 31.4 g/dL (32.0-36.0); Mean Corpuscular Hemoglobin 27.9 pg (27.0-33.0); Mean Corpuscular Volume 88.9 fl (81.6-98.3); Mean Platelet Volume 9.8 fl (7.4-10.4); Platelet Count 293 10x3/uL (150-450); RBC Distribution Width 15.1 % (11.5-14.5); Red Blood Cell (RBC) Count 4.51 10x6/uL (3.90-5.03); White Blood Cell (WBC) Count 7.7 10x3/uL (3.5-10.5)
[2020-08-05 15:02] LABS: BHCG - Serum Negative (NEGATIVE); Pregs Control Background? CLEAR/WHITE (CLR/WHITE); Pregs Control Bar Appear? YES (CONTROL BAR)
[2020-08-05 15:12] LABS: Anion Gap 13 mmol/L (10-20); BUN (Urea Nitrogen) 13 mg/dL (7.0-18.7); Calc. Creatinine Clearance 0 mL/min (70-130); Calcium 9.2 mg/dL (7.8-10.44); Carbon Dioxide 24 mmol/L (22-29); Chloride 106 mmol/L (98-107); Glucose 73 mg/dL (70-105); Potassium 4.3 mmol/L (3.5-5.1); Sodium 139 mmol/L (136-145)
== END 2020-08-05 13:06 | disposition home or self-care (01) ==
LOC: LABBT 13:05
PROVIDERS: ATTEND Specialist
DX: Z01.812 Encounter for preprocedural laboratory examination (principal); K42.9 Umbilical hernia without obstruction or gangrene
CPT/HCPCS: 80048; 84703; 85025

== ENCOUNTER 2020-08-10 10:55 | Observation (INO) | payer BC ==
[~2020-08-10 10:55] MED LIST changes: +Dexamethasone 20 MG/5 ML VIAL ONE; -Iopamidol 370 76% 100 ML VIAL ONE; +Ketorolac Tromethamine 30 MG/ML VIAL ONE; +Labetalol HCl 100 MG/20 ML VIAL ONE; +Lidocaine 1% PF 5 ML VIAL ONE; +Ondansetron PF 4 MG/2 ML Vial ONE; +PROPOFOL 200 MG/20 ML VIAL ONE; +Rocuronium Bromide 10 MG/ML (10ML VIAL) ONE
[2020-08-10] MEDS ORDERED: Acetaminophen 500 MG TAB ONE (11:25)
[2020-08-10] MEDS ORDERED: Ketorolac Tromethamine 30 MG/ML VIAL ONE (11:25)
[2020-08-10] MEDS ORDERED: Fentanyl 250 MCG/5 ML VIAL ONE (14:14)
[2020-08-10] MEDS ORDERED: Lidocaine 1% w/Epinephrine 1:100K 20 ML VIAL ONE (14:18)
[2020-08-10] MEDS ORDERED: Bupivacaine 0.25% HCL 30 ML VIAL ONE (14:18)
[2020-08-10] MEDS ORDERED: Fentanyl 100 MCG/2 ML VIAL ONE ×4 (16:45→19:05)
[2020-08-10] MEDS ORDERED: SUGAMMADEX SODIUM 500 MG/5 ML VIAL ONE (16:45)
[2020-08-10] MEDS ORDERED: HYDROmorphone 2 MG/ML VIAL ONE (17:01)
[2020-08-10] MEDS ORDERED: Morphine Sulfate 2 MG/ML SYRINGE SLOW IVP PRN (17:23)
[2020-08-10] MEDS ORDERED: Promethazine HCl 25 MG/ML VIAL SLOW IVP PRN (17:23)
[2020-08-10] MEDS ORDERED: Ondansetron HCl/PF 4 MG/2 ML Vial IVP PRN (17:23)
[2020-08-10] MEDS ORDERED: Promethazine HCl 25 MG/ML VIAL IM PRN (17:23)
[2020-08-10] MEDS ORDERED: HYDROmorphone 2 MG/ML VIAL SLOW IVP PRN (17:23)
[2020-08-10] MEDS ORDERED: Promethazine HCl 25 MG/ML VIAL IM/IV PRN (19:38)
[2020-08-10] MEDS ORDERED: Lorazepam 2 MG/ML VIAL SLOW IVP PRN (19:38)
[2020-08-10] MEDS ORDERED: HYDROcodone/Acetaminophen 10/325 mg Tablet PO PRN (19:38)
[2020-08-10] MEDS ORDERED: Dextrose 5% in Water 1,000 ML IV PRN (19:38)
[2020-08-10] MEDS ORDERED: Morphine 2 MG/ML VIAL SLOW IVP PRN (19:38)
[2020-08-10] MEDS ORDERED: Dextrose 50% Abboject 50 ML SYRINGE SLOW IVP PRN (19:38)
[2020-08-10] MEDS ORDERED: hydrALAZINE 20 MG/ML VIAL SLOW IVP PRN (19:38)
[2020-08-10] MEDS: Famotidine 20 MG TAB PO SCH (20:43)
[2020-08-10] MEDS: Morphine 4 MG/ML VIAL SLOW IVP PRN ×2 (20:43→23:18)
[2020-08-10] MEDS: Ondansetron PF 4 MG/2 ML Vial IVP PRN (20:43)
[2020-08-10] MEDS ORDERED: diphenhydrAMINE 25 MG CAP PO PRN (21:37)
[2020-08-10 22:17] VITALS: BMI 43.4
[2020-08-10] MEDS: D5 1/2 NS w/20 mEq KCL 1,000 ML IV SCH (23:20)
[2020-08-11] MEDS: Morphine 4 MG/ML VIAL SLOW IVP PRN ×2 (01:13→14:45)
[2020-08-11] MEDS ORDERED: Ketorolac Tromethamine 30 MG/ML VIAL IVP PRN (01:20)
[2020-08-11] MEDS ORDERED: Promethazine HCl 25 MG/ML VIAL IM SCH (01:30)
[2020-08-11] MEDS ORDERED: Meperidine HCl/PF 25 MG/ML VIAL IM SCH (02:45)
[2020-08-11] MEDS: Morphine 10 MG/ML VIAL SLOW IVP PRN ×2 (04:00→06:21)
[2020-08-11 05:19] LABS: Hemoglobin 12.4 g/dL (12.0-16.0); Mean Corpuscular HGB CONC 31.7 g/dL (32.0-36.0); Mean Corpuscular Hemoglobin 28.4 pg (27.0-31.0); Mean Corpuscular Volume 89.6 fL (78.0-98.0); Mean Platelet Volume 7.7 fL (7.4-10.4); Platelet Count 285 thou/uL (130-400); RBC Distribution Width 13.7 % (11.5-14.5); Red Blood Cell (RBC) Count 4.37 mill/uL (4.20-5.40)
[2020-08-11 05:28] LABS: Anion Gap 16 mmol/L (10-20); BUN (Urea Nitrogen) 11 mg/dL (7.0-18.7); Calc. Creatinine Clearance 219 mL/min (70-130); Calcium 8.7 mg/dL (7.8-10.44); Carbon Dioxide 17 mmol/L (22-29); Chloride 110 mmol/L (98-107); Glucose 126 mg/dL (70-105); Potassium 4.9 mmol/L (3.5-5.1); Sodium 138 mmol/L (136-145)
[2020-08-11] MEDS ORDERED: HYDROcodone/Acetaminophen 7.5/325 mg Tablet PO PRN (06:49)
--- NOTE | 2020-08-11 07:20 | PRG ---
DATE OF SERVICE: 08/11/2020 SUBJECTIVE: Ms. Mckinley is postoperative day #1 from an open repair of recurrent ventral incisional hernia with mesh. Because of the amount of work that was done, I recommended admission for pain control. Although, she has been hemodynamically stable overnight, she has had substantial abdominal pain requiring intravenous medication. She has received both morphine and Demerol with appropriate relief. She notes continued discomfort. She has voided a couple of times during the night. She denies nausea or vomiting. OBJECTIVE: VITAL SIGNS: She is afebrile. Pulse 94 and blood pressure 157/78. LUNGS: Clear to auscultation. ABDOMEN: Obese, but soft and nontender. She is tender in the midline underlying her dressing. Drain output was 175 mL yesterday, but appears to be less currently. This is serosanguineous. LABORATORY DATA: Her hemoglobin is 12.4, white blood cell count is 18. Her metabolic panel is unremarkable, although her CO2 level is a little bit low at 17. ASSESSMENT: She is stable following open ventral abdominal hernia repair with mesh. She will start a regular diet today and will initiate oral pain medication using hydrocodone. If she tolerates this well and her pain seems to be appropriately controlled, then she is a good candidate for discharge later in the day. She will be instructed in drain care. Today is Sunday. I want to see her back in my office on Sunday for drain removal. Job ID: [id number]
[2020-08-11] MEDS: Famotidine 20 MG TAB PO SCH ×2 (08:19→20:55)
[2020-08-11] MEDS: Amlodipine 10 MG TAB PO SCH (08:19)
[2020-08-11] MEDS: Hydrochlorothiazide 25 MG TAB PO SCH (08:19)
[2020-08-11] MEDS: D5 1/2 NS w/20 mEq KCL 1,000 ML IV SCH ×2 (08:28→14:48)
--- NOTE | 2020-08-11 08:38 | OP ---
DATE OF PROCEDURE: 08/10/2020 PREOPERATIVE DIAGNOSES: Recurrent ventral hernia, morbid obesity. POSTOPERATIVE DIAGNOSES: Recurrent ventral hernia, morbid obesity. OPERATION PERFORMED: Open repair of recurrent ventral hernia with mesh using a 10 x 15 cm Parietex skirted mesh patch. ANESTHESIA: General endotracheal. INDICATIONS: The patient is a morbidly obese 34-year-old black female. She underwent robotic repair of a ventral hernia 6 months ago. She had presented for evaluation of recurrent bulging and pain in the periumbilical area. CT scan demonstrated a relatively small hernia, but extremely thinned fascia in the area of the hernia and it was difficult to discern the location of the mesh patch. Due to her obesity, the substantial diastasis in this area, and the recurrent nature of the hernia, I recommended an open repair. DESCRIPTION OF OPERATION: Informed consent was obtained. The patient was taken to the operating room where general endotracheal anesthesia was obtained with the patient in supine position. Abdomen was prepped with ChloraPrep and draped in sterile fashion. Local anesthetic was infiltrated using a mixture of 1% lidocaine with epinephrine and 0.25% Marcaine. A midline incision was created both supra and infraumbilical and curved around the left side of the umbilicus. Dissection was carried through skin and subcutaneous tissue down to the fascia. The fascia was opened in the midline. There were substantial omental adhesions at the superior aspect in the supraumbilical region. This proved to be the area of the mesh patch, which had apparently been placed in an intraperitoneal fashion. There was a dense mass of the fatty tissue at this location as well. I carefully opened the fascia in the midline through the mesh patch. I dissected all of the adhesions off the anterior abdominal wall. The firm mass of fatty tissue was resected from the rest of the omentum and submitted as a specimen. This was a certainly fibrotic scar and fat, but this measured probably 7 cm in diameter. The investing omentum was divided between clamps and 2-0 silk ties. The falciform ligament was mobilized off the anterior abdominal wall. The thinned fascia was excised back to the edge of the rectus muscle on the left. The fatty tissue was dissected off the underlying fascia extending laterally for several centimeters. On the right side, a similar procedure was performed. The umbilicus was dissected off the underlying fascia. The new hernia defect was identified on the patient's right side and bulging fat from this was resected. There was also fat from the prior hernia in this area that was resected. Again, the thinned weakened fascia as well as the hernia defect was excised. This amounted to over 3 cm of fascia on each side of the midline being resected. Again, flaps were raised, elevated the fat off the fascia. When viable musculofascial edges were achieved bilaterally, I measured the defect and obtained a 10 x 15 cm skirted Parietex mesh patch. I placed 8 stay sutures of 0 Ethibond at intervals around the patch. The patch was placed in the intraperitoneal space. Using the GraNee needle, I withdrew the stay sutures through the anterior muscular layer in a transfascial fashion. When each of these was appropriately placed, they were tied securely. The mesh was positioned such that the edges of the mesh were 5 cm from the midline on each side. The fascia was then closed in the midline using interrupted sutures of #1 Prolene placed in [id number] fashion. The wound was copiously irrigated. All irrigant was aspirated. Hemostasis was meticulous. A #19 round fluted drain was placed within the subcutaneous tissue and brought out lower left abdomen was secured with a 3-0 nylon suture. The wound was then closed in layers with 3-0 Vicryl and skin shakira. Dry gauze dressing was placed externally. There were no complications. The patient tolerated the procedure well, was taken to recovery room in stable condition. Job ID: [id number]
[2020-08-11] MEDS: HYDROcodone/Acetaminophen 7.5/325 mg Tablet PO PRN ×4 (09:27→21:13)
[2020-08-11 09:36] LABS: Band 6 % (5-11); Lymphocytes 10 % (21-51); MDiff Complete? YES; Monocytes 3 % (0-10); Neutrophil 75 % (42-75); Platelet Morphology Comment Appears Adequate; Polychromasia SLIGHT = 2-3 cells (100X) (0-2/hpf); Reactive Lymphocytes 6 % (0-10)
[2020-08-11] MEDS: Ondansetron PF 4 MG/2 ML Vial IVP PRN (14:45)
[2020-08-11] MEDS ORDERED: D5 1/2 NS w/20 mEq KCL 1,000 ML IV SCH (18:58)
[2020-08-12] MEDS: Ketorolac Tromethamine 30 MG/ML VIAL IVP SCH ×2 (01:02→05:00)
--- NOTE | 2020-08-12 06:43 | PDOC.GSPN ---
Surgery Progress Note: Subj - Subjective Narrative: Ms Mckinley is a 34 year old female POD 2 ventral hernia repair with mesh. She was sitting up in bed at the time of the visit this morning and reported no complaints. She has been able to ambulate frequently but becomes dizzy when she first gets up and half way through her walk. The dizziness subsides if she stops for a few seconds and then she is able to continue. Her pain is significantly reduced from yesterday rating it at a 3/10 this morning. She has been able to urinate but has not yet passed flatus or had a bowel movement. She has had some nausea but reduced since yesterday, and has not had any episodes of vomiting. She has not eaten much since yesterday and has primarily consumed water and crackers. She denies any shortness of breath, chest pain, and chills. Surgery Progress Note: Obj - Vital signs Vital signs: Vital Signs - Most Recent Temp Pulse Resp BP Pulse Ox 97.6 F 72 16 150/67 H 99 08/12/20 04:00 08/12/20 04:00 08/12/20 04:00 08/12/20 04:00 08/12/20 04:00 - Physical Exam General: moderate pain Cardiovascular: regular rate and rhythm Respiratory: clear to auscultation, normal respiratory effort Abdomen: soft, nondistended, decreased bowel sounds (hypoactive), appropriately tender (along the midline), other (KRYSTEN drain intact with 115 mL of serosanguinous fluid overnight) Wound: dressing clean,dry,intact Surgery Progress Note: Results - Labs Result Diagrams: 08/11/20 05:07 08/11/20 05:07 Surgery Progress Note: A/P - Plan Plan: Ms. Mckinley is POD 2 ventral hernia repair with mesh. She is doing well overall and her pain has been better managed since yesterday. 1. Continue IV fluids given poor oral intake 2. Has not yet passed gas or had a bowel movement - could be due to pain medications 3. Optimize nausea medications and do another trial of oral intake 4. Continue pain management 5. Pending omentum path report 6. Discharge in the next 24 hours pending oral intake status
[2020-08-12] MEDS: Famotidine 20 MG TAB PO SCH (08:20)
[2020-08-12] MEDS: Hydrochlorothiazide 25 MG TAB PO SCH (08:20)
[2020-08-12] MEDS: Amlodipine 10 MG TAB PO SCH (08:20)
[2020-08-12 08:21] VITALS: BP 141/76
[2020-08-12 08:22] VITALS: TEMP 98.6
[2020-08-12] MEDS: HYDROcodone/Acetaminophen 7.5/325 mg Tablet PO PRN (11:59)
== END 2020-08-12 12:00 | disposition home or self-care (01) ==
LOC: SDC 10:55 → ONC 17:22
PROVIDERS: ADMIT Specialist; ATTEND Specialist
PROC: 0WUF0JZ Supplement Abdominal Wall with Synthetic Substitute, Open Approach (ICD-10-PCS; principal; 2020-08-10)
DX: K43.2 Incisional hernia without obstruction or gangrene (principal); K65.4 Sclerosing mesenteritis; I10 Essential (primary) hypertension; F17.200 Nicotine dependence, unspecified, uncomplicated; E66.01 Morbid (severe) obesity due to excess calories; Z68.41 Body mass index [BMI] 40.0-44.9, adult; Z79.899 Other long term (current) drug therapy; Z98.890 Other specified postprocedural states
CPT/HCPCS: 36415; 80048; 85025; 88305; 96372; 96374; 96375; 96376; C1781; G0378; J0690; J1100; J1170; J1885; J2175; J2270; J2405; J2550; J2704; J3010; J3480; S0020

== ENCOUNTER 2020-08-15 13:18 | Emergency (ER) | payer BC ==
[2020-08-15 13:43] LABS: #Basophils 0.1 thou/uL (0.0-0.2); #Eosinphils 0.3 thou/uL (0.0-0.7); #Lymphocytes 3.3 thou/uL (1.20-3.40); #Monocytes 0.7 thou/uL (0.11-0.59); #Neutrophils 4.1 thou/uL (1.40-6.50); %Basophils 0.9 % (0.0-1.0); %Lymphocytes 39.7 % (21.0-51.0); %Monocytes 7.7 % (0.0-10.0); %Neutrophils 48.7 % (42.0-75.0); Hemoglobin 13.6 g/dL (12.0-16.0); Mean Corpuscular HGB CONC 32.8 g/dL (32.0-36.0); Mean Corpuscular Hemoglobin 29.2 pg (27.0-31.0); Mean Corpuscular Volume 89.2 fL (78.0-98.0); Platelet Count 363 thou/uL (130-400); RBC Distribution Width 13.3 % (11.5-14.5); Red Blood Cell (RBC) Count 4.64 mill/uL (4.20-5.40); White Blood Cell (WBC) Count 8.4 thou/uL (4.8-10.8)
[2020-08-15 14:04] LABS: ALT (SGPT) 12 U/L (8-55); AST (SGOT) 11 U/L (5-34); Albumin 4.3 g/dL (3.5-5.0); Alkaline Phosphatase 70 U/L (40-110); Anion Gap 13 mmol/L (10-20); BUN (Urea Nitrogen) 13 mg/dL (7.0-18.7); Bilirubin, Total 0.5 mg/dL (0.2-1.2); Calc. Creatinine Clearance 0 mL/min (70-130); Calcium 9.8 mg/dL (7.8-10.44); Carbon Dioxide 29 mmol/L (22-29); Chloride 102 mmol/L (98-107); Globulin 3.4 g/dL (2.4-3.5); Glucose 102 mg/dL (70-105); Potassium 4.4 mmol/L (3.5-5.1); Protein, Total 7.7 g/dL (6.0-8.3); Sodium 140 mmol/L (136-145)
[2020-08-15] MEDS ORDERED: Morphine 4 MG/ML VIAL ONE (15:04)
[2020-08-15] MEDS ORDERED: Ondansetron PF 4 MG/2 ML Vial ONE (15:04)
== END 2020-08-15 16:36 | disposition home or self-care (01) ==
LOC: ERS 13:18
DX: G89.18 Other acute postprocedural pain (principal); R10.9 Unspecified abdominal pain; I10 Essential (primary) hypertension
CPT/HCPCS: 36415; 80053; 85025; 96374; 96375; J2270; J2405

== ENCOUNTER 2020-08-17 20:26 | Emergency (ER) | payer BC ==
[~2020-08-17 20:26] MED LIST changes: -Dexamethasone 20 MG/5 ML VIAL ONE; +Iopamidol-370 76% 500 ML 1 ML ONE; -Ketorolac Tromethamine 30 MG/ML VIAL ONE; -Labetalol HCl 100 MG/20 ML VIAL ONE; -Lidocaine 1% PF 5 ML VIAL ONE; -Ondansetron PF 4 MG/2 ML Vial ONE; -PROPOFOL 200 MG/20 ML VIAL ONE; -Rocuronium Bromide 10 MG/ML (10ML VIAL) ONE
[2020-08-17 21:19] LABS: #Basophils 0.1 thou/uL (0.0-0.2); #Eosinphils 0.2 thou/uL (0.0-0.7); #Lymphocytes 4.5 thou/uL (1.20-3.40); #Neutrophils 5.7 thou/uL (1.40-6.50); %Basophils 0.7 % (0.0-1.0); %Eosinophils 2.1 % (0.0-10.0); %Lymphocytes 38.6 % (21.0-51.0); %Neutrophils 49.6 % (42.0-75.0); Hemoglobin 13.3 g/dL (12.0-16.0); Mean Corpuscular HGB CONC 33.3 g/dL (32.0-36.0); Mean Corpuscular Hemoglobin 29.6 pg (27.0-31.0); Mean Corpuscular Volume 88.8 fL (78.0-98.0); Mean Platelet Volume 7.4 fL (7.4-10.4); Platelet Count 368 thou/uL (130-400); RBC Distribution Width 13.4 % (11.5-14.5); White Blood Cell (WBC) Count 11.5 thou/uL (4.8-10.8)
[2020-08-17 21:25] LABS: BHCG - Serum Negative (NEGATIVE); Pregs Control Background? CLEAR/WHITE (CLR/WHITE); Pregs Control Bar Appear? YES (CONTROL BAR)
[2020-08-17 21:39] LABS: INR-International Normal Ratio 0.9; Prothrombin Time 12.1 sec (12.0-14.7)
[2020-08-17 21:40] LABS: PTT 24.5 sec (22.9-36.1)
[2020-08-17 22:22] LABS: ALT (SGPT) 9 U/L (8-55); AST (SGOT) 12 U/L (5-34); Albumin 4.2 g/dL (3.5-5.0); Alkaline Phosphatase 73 U/L (40-110); Anion Gap 18 mmol/L (10-20); BUN (Urea Nitrogen) 13 mg/dL (7.0-18.7); Bilirubin, Total 0.6 mg/dL (0.2-1.2); Calc. Creatinine Clearance 0 mL/min (70-130); Calcium 9.6 mg/dL (7.8-10.44); Carbon Dioxide 18 mmol/L (22-29); Chloride 107 mmol/L (98-107); Globulin 3.7 g/dL (2.4-3.5); Glucose 99 mg/dL (70-105); Potassium 4.4 mmol/L (3.5-5.1); Protein, Total 7.9 g/dL (6.0-8.3); Sodium 139 mmol/L (136-145)
== END 2020-08-17 23:45 | disposition home or self-care (01) ==
LOC: ERS 20:26
DX: L76.32 Postprocedural hematoma of skin and subcutaneous tissue following other procedure (principal); I10 Essential (primary) hypertension
CPT/HCPCS: 71275; 74177; 80053; 84703; 85025; 85610; 85730; 86850; 86900; 86901; Q9967

== ENCOUNTER 2020-11-07 20:56 | Emergency (ER) | payer BC ==
[2020-11-07 21:59] LABS: #Basophils 0.1 thou/uL (0.0-0.2); #Eosinphils 0.2 thou/uL (0.0-0.7); #Lymphocytes 4.1 thou/uL (1.20-3.40); #Monocytes 0.5 thou/uL (0.11-0.59); #Neutrophils 4.1 thou/uL (1.40-6.50); %Basophils 1.3 % (0.0-1.0); %Eosinophils 2.5 % (0.0-10.0); %Lymphocytes 45.5 % (21.0-51.0); %Monocytes 5.6 % (0.0-10.0); %Neutrophils 45.1 % (42.0-75.0); Hemoglobin 13.5 g/dL (12.0-16.0); Mean Corpuscular HGB CONC 32.9 g/dL (32.0-36.0); Mean Corpuscular Hemoglobin 29.8 pg (27.0-31.0); Mean Corpuscular Volume 90.6 fL (78.0-98.0); Mean Platelet Volume 7.4 fL (7.4-10.4); Platelet Count 281 thou/uL (130-400); RBC Distribution Width 13.7 % (11.5-14.5); Red Blood Cell (RBC) Count 4.52 mill/uL (4.20-5.40)
[2020-11-07 22:15] LABS: Bacteria/HPF None Seen HPF (None Seen); Bilirubin Negative (Negative); Blood, Urine Trace (Negative); Clarity Clear (Clear); Glucose, Urine (Dipstick) Normal (Negative); Ketone, Urine Negative (Negative); Leukocyte Negative Leu/uL (Negative); Mucous/LPF Rare LPF (<2+); Nitrite Negative (Negative); Pregnancy Test - Urine (BHCG) Negative (Negative); Pregu Control Background? CLEAR/WHITE (CLR/WHITE); Pregu Control Bar Appear? YES (CONTROL BAR); Protein, Urine (Dipstick) 10 mg/dL (Neg-Trace); RBC/HPF 0-3 HPF (0-3); Squamous Epithelial 0-3 HPF (0-3); WBC/HPF 0-3 HPF (0-3); pH, Urine 5.5 (5.0-9.0)
[2020-11-07 22:21] LABS: ALT (SGPT) 10 U/L (8-55); AST (SGOT) 11 U/L (5-34); Albumin 4.1 g/dL (3.5-5.0); Alkaline Phosphatase 63 U/L (40-110); Anion Gap 12 mmol/L (10-20); BUN (Urea Nitrogen) 9 mg/dL (7.0-18.7); Bilirubin, Total 0.2 mg/dL (0.2-1.2); Calc. Creatinine Clearance 0 mL/min (70-130); Calcium 9.1 mg/dL (7.8-10.44); Carbon Dioxide 23 mmol/L (22-29); Chloride 107 mmol/L (98-107); Globulin 3.2 g/dL (2.4-3.5); Glucose 72 mg/dL (70-105); Lipase 42 U/L (8-78); Potassium 3.7 mmol/L (3.5-5.1); Protein, Total 7.3 g/dL (6.0-8.3); Sodium 138 mmol/L (136-145)
== END 2020-11-08 02:20 | disposition home or self-care (01) ==
LOC: ERS 20:56
DX: R10.31 Right lower quadrant pain (principal); R11.2 Nausea with vomiting, unspecified; I10 Essential (primary) hypertension; F17.210 Nicotine dependence, cigarettes, uncomplicated; Z79.899 Other long term (current) drug therapy
CPT/HCPCS: 36415; 74177; 80053; 81003; 81015; 81025; 83690; 85025

== ENCOUNTER 2022-02-22 07:51 | Outpatient (CLI) | payer MEDICAID | END 2022-02-22 07:52 | disposition home or self-care (01) | LOC: BICULT 07:51 | PROVIDERS: ATTEND Nurse Practitioner Women's Health | DX: R10.2 Pelvic and perineal pain (principal) | CPT/HCPCS: 76856 ==

== ENCOUNTER 2022-03-29 18:26 | Emergency (ER) | payer MEDICAID | END 2022-03-29 19:26 | disposition home or self-care (01) | LOC: ERS 18:26 | DX: R59.0 Localized enlarged lymph nodes (principal) | CPT/HCPCS: 99283 ==

== ENCOUNTER 2023-05-21 08:51 | Outpatient (CLI) | payer BC ==
[2023-05-21] MEDS ORDERED: Iopamidol 370 76% 100 ML VIAL ONE (14:20)
== END 2023-05-21 08:52 | disposition home or self-care (01) ==
LOC: CT 08:51
PROVIDERS: ATTEND Internal Medicine Gastroenterology
DX: K92.1 Melena (principal); K43.9 Ventral hernia without obstruction or gangrene; R10.30 Lower abdominal pain, unspecified; E73.9 Lactose intolerance, unspecified
CPT/HCPCS: 74177; Q9967

== ENCOUNTER 2023-06-28 20:07 | Emergency (ER) | payer BC ==
[2023-06-28] MEDS ORDERED: Ketorolac Tromethamine 30 MG (1 mL) VIAL ONE (21:09)
== END 2023-06-28 21:29 | disposition home or self-care (01) ==
LOC: ERS 20:07
DX: M54.32 Sciatica, left side (principal); I10 Essential (primary) hypertension; F17.210 Nicotine dependence, cigarettes, uncomplicated; Z79.899 Other long term (current) drug therapy
CPT/HCPCS: 96372; 99283; J1885

== ENCOUNTER 2023-07-12 16:03 | Emergency (ER) | payer BC ==
[2023-07-12] MEDS ORDERED: Ketorolac Tromethamine 30 MG (1 mL) VIAL ONE (16:35)
[2023-07-12] MEDS ORDERED: Dexamethasone 10 MG/ML VIAL ONE (16:36)
== END 2023-07-12 18:09 | disposition home or self-care (01) ==
LOC: ERS 16:03
DX: M25.552 Pain in left hip (principal); I10 Essential (primary) hypertension
CPT/HCPCS: 96372; J1100; J1885

== ENCOUNTER 2024-03-14 20:49 | Emergency (ER) | payer OTHER, SELFPAY ==
[2024-03-14] MEDS ORDERED: Ketorolac Tromethamine 30 MG (1 mL) VIAL ONE ×2 (22:59→23:01)
[2024-03-14] MEDS ORDERED: Sulfameth/Trimethoprim DS 800-160mg TAB ONE (22:59)
== END 2024-03-14 23:38 | disposition home or self-care (01) ==
LOC: ERS 20:49
DX: L02.412 Cutaneous abscess of left axilla (principal); I10 Essential (primary) hypertension
CPT/HCPCS: 96372; 99283; J1885

== ENCOUNTER 2024-03-24 07:39 | Emergency (ER) | payer OTHER ==
[2024-03-24 08:39] LABS: Bacteria/HPF None Seen HPF (None Seen); Bilirubin Negative (Negative); Blood, Urine Trace (Negative); CAUTI Indications for Culture Dysuria,urgency,freq; Clarity Clear (Clear); Glucose, Urine (Dipstick) Normal (Negative); Ketone, Urine Negative (Negative); Leukocyte 250 Leu/uL (Negative); Nitrite Negative (Negative); Protein, Urine (Dipstick) Negative (Neg-Trace); RBC/HPF 0-3 HPF (0-3); Specific Gravity, Urine 1.023 (1.002-1.036); Squamous Epithelial 0-3 HPF (0-3); Urobilinogen Normal mg/dL (Less than 2); WBC/HPF 0-3 HPF (0-3)
[2024-03-24 08:41] LABS: Pregnancy Test - Urine (BHCG) Negative (Negative); Pregu Control Background? CLEAR/WHITE (CLR/WHITE); Pregu Control Bar Appear? YES (CONTROL BAR); Specific Gravity 1.023 (1.002-1.036)
[2024-03-24 08:42] LABS: Urine Culture Reflex No No
[2024-03-25 06:09] LABS: Chlamydia by PCR, Vaginal Swab Not Detected (NotDetected); GC by PCR, Vaginal Swab Not Detected (NotDetected)
== END 2024-03-24 08:59 | disposition home or self-care (01) ==
LOC: ERS 07:39
DX: N76.0 Acute vaginitis (principal); I10 Essential (primary) hypertension
CPT/HCPCS: 81001; 81025; 87480; 87491; 87510; 87591; 87660; 99283

== ENCOUNTER 2024-06-24 07:27 | Observation (INO) | payer OTHER ==
[2024-06-24] MEDS ORDERED: Acetaminophen 500 MG TAB ONE (07:49)
[2024-06-24] MEDS ORDERED: Meclizine HCl 25 MG TAB ONE (07:50)
[2024-06-24] MEDS ORDERED: Dexamethasone 10 MG/ML VIAL ONE (07:50)
[2024-06-24] MEDS ORDERED: Metoclopramide HCl 10 MG (2 mL) VIAL ONE (07:50)
[2024-06-24] MEDS ORDERED: diphenhydrAMINE 50 MG/ML VIAL ONE (08:03)
[2024-06-24 08:20] LABS: #Basophils 0.03 10x3/uL (0.0-0.2); %Basophils 0.5 % (0.0-1.0); %Eosinophils 2.9 % (0.0-10.0); %Lymphocytes 44.9 % (21.0-51.0); %Monocytes 7.6 % (0.0-10.0); %Neutrophils 43.9 % (42.0-75.0); Hematocrit 41.2 % (36.0-47.0); Hemoglobin 13.4 g/dL (12.0-16.0); Mean Corpuscular HGB CONC 32.5 g/dL (32.0-36.0); Mean Corpuscular Hemoglobin 28.3 pg (27.0-31.0); Mean Corpuscular Volume 86.9 fL (78.0-98.0); Mean Platelet Volume 9.5 fL (7.4-10.4); Platelet Count 301 10x3/uL (130-400); RBC Distribution Width 14.2 % (11.5-14.5); Red Blood Cell (RBC) Count 4.74 mill/uL (4.20-5.40)
[2024-06-24 08:26] LABS: BHCG - Serum Negative (NEGATIVE); Pregs Control Background? CLEAR/WHITE (CLR/WHITE); Pregs Control Bar Appear? YES (CONTROL BAR)
[2024-06-24 08:32] LABS: ALT (SGPT) 10 U/L (8-55); AST (SGOT) 16 U/L (5-34); Albumin 3.8 g/dL (3.5-5.0); Alkaline Phosphatase 74 U/L (40-110); Anion Gap 12 mmol/L (10-20); BUN (Urea Nitrogen) 8 mg/dL (7.0-18.7); Bilirubin, Total 0.7 mg/dL (0.2-1.2); Calc. Creatinine Clearance 0 mL/min (70-130); Carbon Dioxide 23 mmol/L (22-29); Chloride 110 mmol/L (98-107); Estimated GFR 95; Glucose 85 mg/dL (70-105); Potassium 4.1 mmol/L (3.5-5.1); Protein, Total 7.8 g/dL (6.0-8.3); Sodium 141 mmol/L (136-145)
[2024-06-24] MEDS ORDERED: Ketorolac Tromethamine 30 MG (1 mL) VIAL ONE (08:49)
[2024-06-24] MEDS ORDERED: Magnesium 2 GM/50 ML BAG (IN WATER) ONE (08:49)
[2024-06-24] MEDS ORDERED: Morphine 2 MG/ML VIAL ONE (10:08)
[2024-06-24] MEDS ORDERED: hydrALAZINE 20 MG/ML VIAL SLOW IVP PRN (10:27)
[2024-06-24] MEDS ORDERED: Senokot S 8.6-50 MG TAB PO PRN (10:31)
[2024-06-24] MEDS ORDERED: Calcium Carbonate 500 MG ChewTAB PO PRN (10:31)
[2024-06-24] MEDS ORDERED: Ondansetron ODT 4 MG TAB PO PRN (10:31)
[2024-06-24] MEDS ORDERED: Acetaminophen 325 MG TAB PO PRN (10:31)
[2024-06-24] MEDS ORDERED: Lorazepam 1 MG TAB PO SCH (11:45)
[2024-06-24 13:23] VITALS: BMI 41.3
[2024-06-24] MEDS: Aspirin 81 mg Enteric Coated Tablet PO SCH (13:47)
[2024-06-24] MEDS ORDERED: Meclizine HCl 12.5 MG TAB PO PRN (19:15)
[2024-06-24] MEDS: Atorvastatin Calcium 40 MG TAB PO SCH (20:32)
[2024-06-24] MEDS: Fioricet 325/50/40 mg Tablet PO PRN (20:32)
[2024-06-24] MEDS: Melatonin 3 MG TAB PO PRN (20:32)
[2024-06-24] MEDS: Ketorolac Tromethamine 30 MG (1 mL) VIAL IVP PRN (22:04)
[2024-06-25 04:26] LABS: #Basophils Less than 0.03 10x3/uL (0.0-0.2); #Eosinophils Less than 0.03 10x3/uL (0.0-0.7); %Basophils 0.1 % (0.0-1.0); %Eosinophils 0.1 % (0.0-10.0); %Lymphocytes 28.2 % (21.0-51.0); %Monocytes 8.4 % (0.0-10.0); Hematocrit 37.3 % (36.0-47.0); Hemoglobin 12.1 g/dL (12.0-16.0); Mean Corpuscular HGB CONC 32.4 g/dL (32.0-36.0); Mean Corpuscular Hemoglobin 28.2 pg (27.0-31.0); Mean Corpuscular Volume 86.9 fL (78.0-98.0); Mean Platelet Volume 9.6 fL (7.4-10.4); Platelet Count 287 10x3/uL (130-400); RBC Distribution Width 14.3 % (11.5-14.5); Red Blood Cell (RBC) Count 4.29 mill/uL (4.20-5.40)
[2024-06-25 05:01] LABS: Anion Gap 10 mmol/L (10-20); BUN (Urea Nitrogen) 12 mg/dL (7.0-18.7); Calc. Creatinine Clearance 200 mL/min (70-130); Carbon Dioxide 22 mmol/L (22-29); Cardiac Risk 3.7 (Less than 4.5); Chloride 112 mmol/L (98-107); Cholesterol 117 mg/dl (< 200 Desired); Estimated GFR 103; Glucose 101 mg/dL (70-105); HDL Cholesterol 32 mg/dL (>60 Neg Risk); LDL Cholesterol, Calculated 72 mg/dL; Potassium 3.6 mmol/L (3.5-5.1); Sodium 140 mmol/L (136-145); Triglycerides 64 mg/dL (Less than 150)
[2024-06-25] MEDS ORDERED: Hydrochlorothiazide 25 MG TAB PO SCH (09:00)
[2024-06-25] MEDS: Aspirin 81 mg Enteric Coated Tablet PO SCH (09:01)
[2024-06-25] MEDS: FLU (Fluarix Triv) TS24-25(6MOS UP)/PF 45 MCG/0.5 ML Syringe IM ONE (09:06)
[2024-06-25] MEDS: Lorazepam 2 MG/ML VIAL SLOW IVP PRN (14:21)
[2024-06-25] MEDS: diphenhydrAMINE 50 MG/ML VIAL IVP SCH (17:46)
[2024-06-25] MEDS: Prochlorperazine 10 MG/2 ML VIAL IVP SCH (17:46)
[2024-06-25 22:43] VITALS: BP 138/94; TEMP 98.4
== END 2024-06-25 22:35 | disposition home or self-care (01) ==
LOC: ERS 07:27 → ERHOLD 10:29 → 2SE 13:30
PROVIDERS: ADMIT Internal Medicine; ATTEND Hospitalist
DX: R51.9 Headache, unspecified (principal); I10 Essential (primary) hypertension; R20.0 Anesthesia of skin; H53.8 Other visual disturbances; E66.813 Obesity, class 3; F12.90 Cannabis use, unspecified, uncomplicated; Z79.899 Other long term (current) drug therapy; Z68.41 Body mass index [BMI] 40.0-44.9, adult; Z87.59 Personal history of other complications of pregnancy, childbirth and the puerperium
CPT/HCPCS: 36415; 70450; 70496; 70498; 70553; 76376; 80048; 80053; 80061; 84703; 85025; 86141; 96365; 96366; 96368; 96375; 96376; G0378; J0780; J1100; J1200; J1885; J2060; J2272; J2765; J3475

== ENCOUNTER 2025-01-11 00:59 | Emergency (ER) | payer SELFPAY ==
[2025-01-11] MEDS ORDERED: Lidocaine 1% w/Epinephrine 1:100K 20 ML VIAL ONE (02:16)
[2025-01-11] MEDS ORDERED: Ketorolac Tromethamine 30 MG (1 mL) VIAL ONE (02:31)
== END 2025-01-11 04:00 | disposition home or self-care (01) ==
LOC: ERS 00:59
DX: L02.411 Cutaneous abscess of right axilla (principal); I10 Essential (primary) hypertension
CPT/HCPCS: 10060; 87070; 87076; 87077; 87205; 96372; J1885; J2270

== ENCOUNTER 2025-02-04 19:53 | Emergency (ER) | payer SELFPAY ==
[2025-02-04] MEDS ORDERED: HYDROcodone/Acetaminophen 5/325 mg Tablet ONE (20:49)
[2025-02-04] MEDS ORDERED: Lidocaine 1% w/Epinephrine 1:100K 20 ML VIAL ONE (21:24)
[2025-02-04] MEDS ORDERED: Bacitracin 1 PK ONE (22:43)
[2025-02-04] MEDS ORDERED: Amoxicillin/Potassium Clav 875 MG TAB ONE (22:48)
== END 2025-02-04 22:55 | disposition home or self-care (01) ==
LOC: ERS 19:53
DX: L02.412 Cutaneous abscess of left axilla (principal); L73.2 Hidradenitis suppurativa; I10 Essential (primary) hypertension; Z79.899 Other long term (current) drug therapy
CPT/HCPCS: 10060

== ENCOUNTER 2025-02-11 17:52 | Emergency (ER) | payer SELFPAY ==
[2025-02-11 18:23] LABS: Hematocrit 39.9 % (36.0-47.0); Hemoglobin 13.2 g/dL (12.0-16.0); Mean Corpuscular Hemoglobin 28.5 pg (27.0-31.0); Mean Corpuscular Volume 86.2 fL (78.0-98.0); Platelet Count 290 10x3/uL (130-400); Red Blood Cell (RBC) Count 4.63 mill/uL (4.20-5.40); White Blood Cell (WBC) Count 8.01 10x3/uL (4.8-10.8)
[2025-02-11 18:38] LABS: Bacteria/HPF None Seen HPF (None Seen); CAUTI Indications for Culture Pelvic or flank pain; Glucose, Urine (Dipstick) Normal (Negative); Leukocyte Negative Leu/uL (Negative); Protein, Urine (Dipstick) Negative (Neg-Trace); RBC/HPF 0-3 HPF (0-3); Specific Gravity, Urine 1.027 (1.002-1.036); WBC/HPF 0-3 HPF (0-3)
[2025-02-11 18:39] LABS: Urine Culture Reflex No No
[2025-02-11 18:49] LABS: ALT (SGPT) 10 U/L (Less than 34); AST (SGOT) 20 U/L (11-34); Albumin 3.8 g/dL (3.1-4.5); Alkaline Phosphatase 75 U/L (40-110); Anion Gap 11 mmol/L (10-20); BUN (Urea Nitrogen) 10 mg/dL (7.0-18.7); Bilirubin, Total 0.2 mg/dL (0.3-1.2); Calc. Creatinine Clearance 0 mL/min (70-130); Calcium 9.2 mg/dL (7.8-10.44); Carbon Dioxide 22 mmol/L (22-29); Chloride 109 mmol/L (98-107); Globulin 3.6 g/dL (2.4-3.5); Glucose 81 mg/dL (70-105); Potassium 3.9 mmol/L (3.5-5.1); Sodium 138 mmol/L (136-145)
[2025-02-11 19:10] LABS: Platelet Adequacy Comment Platelets Normal; Polychromasia SLIGHT = 2-3 cells HPF (0-2); Smudge Cells 16.0 %; Toxic Granulation SLIGHT
[2025-02-11] MEDS ORDERED: diphenhydrAMINE 50 MG/ML VIAL ONE (19:26)
[2025-02-11] MEDS ORDERED: Metoclopramide HCl 10 MG (2 mL) VIAL ONE (19:26)
== END 2025-02-11 21:30 | disposition home or self-care (01) ==
LOC: ERS 17:52
DX: I10 Essential (primary) hypertension (principal); R51.9 Headache, unspecified; Z79.899 Other long term (current) drug therapy
CPT/HCPCS: 71045; 80053; 81001; 84484; 85025; 93005; 96365; 96375; J1200; J2765; J2919; Q0162

== ENCOUNTER 2025-03-14 22:05 | Emergency (ER) | payer SELFPAY ==
[~2025-03-14 22:05] MED LIST changes: +Iopamidol 370 76% 100 ML VIAL ONE; -Iopamidol-370 76% 500 ML 1 ML ONE
[2025-03-14] MEDS ORDERED: Ondansetron PF 4 MG/2 ML Vial ONE (23:08)
[2025-03-14] MEDS ORDERED: Ketorolac Tromethamine 30 MG (1 mL) VIAL ONE (23:08)
[2025-03-14] MEDS ORDERED: Famotidine/PF 20 mg/2ml Vial ONE (23:17)
[2025-03-14 23:26] LABS: #Basophils 0.03 10x3/uL (0.0-0.2); #Eosinophils 0.20 10x3/uL (0.0-0.7); #Monocytes 0.67 10x3/uL (0.11-0.59); #Neutrophils 3.30 10x3/uL (1.40-6.50); %Basophils 0.4 % (0.0-1.0); %Eosinophils 2.7 % (0.0-10.0); %Lymphocytes 43.8 % (21.0-51.0); %Monocytes 8.9 % (0.0-10.0); %Neutrophils 43.9 % (42.0-75.0); Hematocrit 40.5 % (36.0-47.0); Hemoglobin 12.9 g/dL (12.0-16.0); Mean Corpuscular Hemoglobin 27.8 pg (27.0-31.0); Mean Corpuscular Volume 87.3 fL (78.0-98.0); Platelet Count 266 10x3/uL (130-400); Red Blood Cell (RBC) Count 4.64 mill/uL (4.20-5.40); White Blood Cell (WBC) Count 7.51 10x3/uL (4.8-10.8)
[2025-03-14 23:40] LABS: BHCG - Serum Negative (NEGATIVE); Pregs Control Background? CLEAR/WHITE (CLR/WHITE); Pregs Control Bar Appear? YES (CONTROL BAR)
[2025-03-14 23:46] LABS: ALT (SGPT) 9 U/L (Less than 34); AST (SGOT) 13 U/L (11-34); Albumin 3.7 g/dL (3.1-4.5); Alkaline Phosphatase 70 U/L (40-110); Anion Gap 11 mmol/L (10-20); BUN (Urea Nitrogen) 8 mg/dL (7.0-18.7); Bilirubin, Total 0.2 mg/dL (0.3-1.2); Calc. Creatinine Clearance 0 mL/min (70-130); Calcium 9.1 mg/dL (7.8-10.44); Carbon Dioxide 27 mmol/L (22-29); Chloride 104 mmol/L (98-107); Globulin 3.3 g/dL (2.4-3.5); Glucose 101 mg/dL (70-105); Lipase 121 U/L (8-78); Magnesium 2.2 mg/dL (1.6-2.6); Potassium 3.2 mmol/L (3.5-5.1); Sodium 139 mmol/L (136-145)
[2025-03-15 01:26] LABS: Bacteria/HPF None Seen HPF (None Seen); CAUTI Indications for Culture Alt mental st,lethar; Glucose, Urine (Dipstick) Normal (Negative); Leukocyte Negative Leu/uL (Negative); Protein, Urine (Dipstick) Negative (Neg-Trace); RBC/HPF 0-3 HPF (0-3); Specific Gravity, Urine 1.015 (1.002-1.036); WBC/HPF 0-3 HPF (0-3)
[2025-03-15 01:27] LABS: Urine Culture Reflex No No
== END 2025-03-15 02:09 | disposition home or self-care (01) ==
LOC: ERS 22:05
DX: R07.9 Chest pain, unspecified (principal); K21.9 Gastro-esophageal reflux disease without esophagitis; K59.00 Constipation, unspecified; I10 Essential (primary) hypertension; Z79.82 Long term (current) use of aspirin; Z79.899 Other long term (current) drug therapy
CPT/HCPCS: 71045; 74177; 80053; 81001; 83690; 83735; 83880; 84484; 84703; 85025; 93005; 96374; 96375; 96376; J1885; Q9967

== ENCOUNTER 2025-05-25 18:23 | Emergency (ER) | payer SELFPAY ==
[2025-05-25 19:04] LABS: #Basophils 0.04 10x3/uL (0.0-0.2); #Eosinophils 0.16 10x3/uL (0.0-0.7); #Monocytes 0.67 10x3/uL (0.11-0.59); #Neutrophils 3.44 10x3/uL (1.40-6.50); %Basophils 0.5 % (0.0-1.0); %Eosinophils 2.1 % (0.0-10.0); %Lymphocytes 43.5 % (21.0-51.0); %Monocytes 8.7 % (0.0-10.0); %Neutrophils 44.9 % (42.0-75.0); Hematocrit 41.0 % (36.0-47.0); Hemoglobin 13.2 g/dL (12.0-16.0); Mean Corpuscular Hemoglobin 28.4 pg (27.0-31.0); Mean Corpuscular Volume 88.2 fL (78.0-98.0); Platelet Count 327 10x3/uL (130-400); Red Blood Cell (RBC) Count 4.65 mill/uL (4.20-5.40); White Blood Cell (WBC) Count 7.66 10x3/uL (4.8-10.8)
[2025-05-25 19:21] LABS: ALT (SGPT) 11 U/L (Less than 34); AST (SGOT) 21 U/L (11-34); Albumin 4.0 g/dL (3.1-4.5); Alkaline Phosphatase 69 U/L (40-110); Anion Gap 7 mmol/L (10-20); BUN (Urea Nitrogen) 11 mg/dL (7.0-18.7); Bilirubin, Total 0.2 mg/dL (0.3-1.2); Calc. Creatinine Clearance 0 mL/min (70-130); Calcium 10.0 mg/dL (7.8-10.44); Carbon Dioxide 31 mmol/L (22-29); Chloride 105 mmol/L (98-107); Globulin 3.4 g/dL (2.4-3.5); Glucose 86 mg/dL (70-105); Potassium 3.7 mmol/L (3.5-5.1); Sodium 139 mmol/L (136-145)
== END 2025-05-25 20:20 | disposition home or self-care (01) ==
LOC: ERS 18:23
DX: R07.9 Chest pain, unspecified (principal); I10 Essential (primary) hypertension; Z79.899 Other long term (current) drug therapy
CPT/HCPCS: 36415; 71046; 80053; 84484; 85025; 93005